=== PATIENT | male | born 1970 | race American Indian/Alaskan Native ===

== ENCOUNTER 2020-12-28 08:31 | Emergency (ER) | payer SELFPAY ==
[2020-12-28] MEDS ORDERED: DOXYCYCLINE 100 MG CAP PO ONE (11:27)
[2020-12-28] MEDS ORDERED: LIDOCAINE-MPF (1%) 10 MG/1 ML VIAL 5 ML INFILTRATI ONE (11:27)
--- NOTE | 2020-12-28 11:31 | Emergency Department Report ---
ED General Adult HPI - General Chief complaint: Skin Rash Stated complaint: POSSIBLE STD Time Seen by Provider: 12/28/20 09:52 Source: patient Mode of arrival: Ambulatory Limitations: No Limitations - History of Present Illness Initial comments: 50-year-old male patient presents emergency department complaints of a painful lesion to his penis occurring 3 days ago. Patient states the affected area began to drain today. He is sexually active with one partner. He is monogamous. No history of similar symptoms. No current steroid or antibiotic use. Denies fever, chills, testicular pain/swelling, dysuria, hematuria, abdominal pain. Denies all other complaints at this time. - Related Data Previous Rx's Medication Instructions Recorded Last Taken Type Doxycycline Hyclate 100 mg PO BID 7 Days tablet. 12/28/20 Unknown Rx Allergies Allergy/AdvReac Type Severity Reaction Status Date / Time No Known Allergies Allergy Unverified 12/28/20 08:54 ED Review of Systems ROS: Stated complaint: POSSIBLE STD Other details as noted in HPI Other: GENERAL: Negative for fever. CARDIOVASCULAR: Negative for chest pain. PULMONARY: Negative for shortness of breath. GASTROINTESTINAL: Negative for abdominal pain. GENITOURINARY: Positive for lesion. MUSCULOSKELETAL: Negative for back pain. NEUROLOGICAL: Negative for headache. INTEGUMENTARY: Negative for rash. ED Past Medical Hx - Past Medical History Previous Medical History?: No - Surgical History Past Surgical History?: No - Medications Home Medications: Home Medications Medication Instructions Recorded Confirmed Last Taken Type Doxycycline Hyclate 100 mg PO BID 7 Days tablet. 12/28/20 Unknown Rx ED Physical Exam - General Limitations: No Limitations - Other Other exam information: General: Awake, appropriately interactive, no acute distress. Neck: Supple. Full range of motion intact. Cardiovascular: Normal peripheral perfusion. Pulmonary: No respiratory distress. Patient is speaking normally without use of accessory muscles. 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 No evidence of inguinal hernia or lymphadenopathy. No scrotal edema or tenderness. No testicular asymmetry. No blood or discharge at the urethral meatus. There is a small papule along the left side of the penile shaft with overlying tenderness and minimal purulent drainage. No surrounding ulceration. Neurological: No facial asymmetry. Speech is clear. Follows commands. Patient is alert and oriented. Musculoskeletal: Moves all four extremities spontaneously with normal range of motion. Psych: Cooperative. Appropriate mood and affect. ED Medical Decision Making - Medical Decision Making Differential diagnosis including but not limited to: urinary tract infection, sexually transmitted infection, folliculitis, cellulitis, abscess, herpes Patient presents emergency department with complaints of a painful lesion to his penis. He is sexually active. He is afebrile with normal vital signs. No testicular involvement. Urinalysis is unremarkable. There is minimal purulent drainage from the lesion on examination however it is not large enough to warrant incision and drainage. Patient will be treated prophylactically for STD exposure; the Doxycycline will also cover skin/soft tissue infection. Emphasized the importance of using barrier protection when engaging in sexual intercourse. Patient expressed understanding and is agreeable to plan of care. Strict return precautions provided. History, exam, diagnostic testing, and current condition do not suggest worrisome pathology to warrant further testing, continued ED treatment, admission, or surgical evaluation at this point. Given the low probability of a significant medical illness, it would be more likely to result in harm than benefit to perform further testing at this stage. Discussed findings, presumptive diagnosis, need for follow-up and specific signs/symptoms that should prompt immediate return to the emergency department. Instructions were explained in detail to the patient in addition to giving written discharge information. Patient expressed understanding and was given the opportunity to ask questions, all of which were satisfactorily answered prior to discharge home. Critical care attestation.: If time is entered above; I have spent that time in minutes in the direct care of this critically ill patient, excluding procedure time. ED Disposition Clinical Impression: Lesion of penis Disposition: [id number] TO HOME OR SELFCARE Is pt being admited?: No Does the pt Need Aspirin: No Condition: Stable Instructions: Safe Sex Additional Instructions: Take Doxycycline with food as directed. Avoid prolonged sun exposure while taking this medication. Please wear a condom when engaging in sexual intercourse. Follow-up with primary care provider next week. Call Thursday to schedule an appointment. See referral information below. Return to the emergency department immediately for new or worsening symptoms. Prescriptions: Doxycycline Hyclate 100 mg PO BID 7 Days tablet. Referrals: [facility] [Outside] - 3-[address] [facility] [Outside] - 3-5 Days [facility] [Outside] - 3-5 Days Forms: Work/School Release Form(ED) Time of Disposition: 11:31
[2020-12-28 12:53] LABS: Bilirubin,Urine NEG (Negative); Blood,Urine NEG (Negative); Color,Urine Yellow (Yellow); Protein,Urine <15 mg/dL mg/dL (Negative); Urobilinogen,Urine < 2.0 mg/dL (<2.0); WBC,Urine < 1.0 /HPF (0.0-6.0)
== END 2020-12-28 12:41 | disposition home or self-care (01) ==
LOC: ED 08:31
DX: N50.9 Disorder of male genital organs, unspecified (principal); Z79.899 Other long term (current) drug therapy
CPT/HCPCS: 81001; 96372; 99283; J0696